=== PATIENT | male | born 1975 | race Caucasian/White ===

== ENCOUNTER 2017-10-04 18:40 | Emergency (ER) | payer MEDICAID ==
--- NOTE | 2017-10-04 19:25 | NUR ---
PATIENT LEFT BEFORE BEING TRIAGED. CALLED FROM WAITING ROOM X 3 ATTEMPTS. PATIENT NOT PRESENT.
== END 2017-10-04 19:29 | disposition left against medical advice (07) ==
LOC: ER 18:42
DX: Z53.21 Procedure and treatment not carried out due to patient leaving prior to being seen by health care provider (principal)